=== PATIENT | male | born 1965 | race Caucasian/White ===

== ENCOUNTER 2018-07-09 14:05 | Emergency (ER) | payer OTHER ==
[2018-07-09 15:01] LABS: MEAN CORPUSCULAR HEMOGLOBIN 31.9 pg (28.0-34.0)
[2018-07-09 15:02] LABS: BASOPHILS % 0.6 (0.0-1.5); EOSINOPHILS % 2.9 % (0.0-6.8); NEUTROPHILS # 5.9 # k/uL (1.4-7.7)
[2018-07-09 15:23] LABS: eGFR (Non-African) > 60
--- NOTE | 2018-07-09 16:35 | ED Physician Documentation ---
Upper Respiratory Symptoms - HISTORIAN Historian: patient - HPI Stated Complaint: cough Chief Complaint: Cough/ Upper Respiratory Additional Information: Patient presents to ED with a 2 week history of cough. He reports he was di agnosed with pneumonia about 10 days ago while he was in . He just finished a 7 day course of Doxycycline on thursday. Today his cough has worsened and he has had some shortness of breath and hot flashes. He is concerned about a PE as he had one in 2017. Onset: days ago (14) Duration: intermittent episodes Context: denies: recent foreign travel Severity: moderate Associated Symptoms: sweating, shortness of breath Worsened by Deep Breath: No Further Comments: no - ROS CONST/EYES: denies: weakness CVS/RESP: shortness of breath LYMPH: denies: ankle swelling GI/: denies: vomiting, nausea NEURO/PSYCH: denies: dizziness MS/SKIN: denies: muscle aches - PAST HX Lung Disease: none PE Risk Factors: none Surgeries/Procedures: none Allergies/Adverse Reactions: Allergies Allergy/AdvReac Type Severity Reaction Status Date / Time No Known Drug Allergies Allergy Verified 07/09/18 14:34 Home Medications: Ambulatory Orders Medication Instructions Recorded Albuterol Sulfate [Proventil Hfa] 6.7 gm IH 07/09/18 Benzonatate [Tessalon Perles] 100 mg PO TID 07/09/18 Levofloxacin [Levaquin] 750 mg PO DAILY #10 tablet 07/09/18 predniSONE [Deltasone] 10 mg PO DIRECTED #31 tablet 07/09/18 - SOCIAL HX Smoking History: non-smoker Alcohol Use: none Drug Use: none - FAMILY HX Family History: none - VITAL SIGNS Vital Signs: Vital Signs Temp Pulse Resp BP Pulse Ox 98.8 F 67 18 119/67 91 L 07/09/18 14:16 07/09/18 14:16 07/09/18 14:16 07/09/18 14:16 07/09/18 14:16 - REVIEWED ASSESSMENTS Nursing Assessment Reviewed: Yes Vitals Reviewed: Yes ED Results Lab/Radiology - Lab Results Lab Results: Lab Results 07/09/18 07/09/18 07/09/18 14:45 14:45 14:30 WBC 9.10 K/ul K/ul (4.00-12.00) RBC 4.57 M/ul M/ul (3.90-5.20) Hgb 14.6 g/dL g/dL (12.0-18.0) Hct 43.4 % % (37.0-53.0) MCV 95.0 fl fl (80.0-100.0) MCH 31.9 pg pg (28.0-34.0) MCHC 33.6 g/dL g/dL (30.0-36.0) RDW 12.7 % % (11.3-14.3) Plt Count 246 K/mm3 K/mm3 (130-400) Neut % (Auto) 64.4 % % (39.0-79.0) Lymph % (Auto) 25.1 % % (16.0-50.0) [place] % (Auto) 7.0 % % (0.0-11.0) Eos % (Auto) 2.9 % % (0.0-6.8) Baso % (Auto) 0.6 (0.0-1.5) Neut # (Auto) 5.9 # k/uL # k/uL (1.4-7.7) Lymph # (Auto) 2.3 # k/uL # k/uL (0.6-4.0) [place] # (Auto) 0.6 # k/uL # k/uL (0.0-0.9) Eos # (Auto) 0.3 # k/uL # k/uL (0.0-0.6) Baso # (Auto) 0.1 # k/uL # k/uL (0.0-0.5) Sodium 140 mmol/L mmol/L (136-145) Potassium 4.2 mmol/L mmol/L (3.5-5.1) Chloride 101 mmol/L mmol/L (98-107) Carbon Dioxide 30 mmol/L mmol/L (22-30) BUN 15 mg/dL mg/dL (9-20) Creatinine 1.10 mg/dL mg/dL (0.66-1.25) Estimated Creat Clear 155 Est GFR ( Amer) > 60 (60 - ) Est GFR (Non-Af Amer) > 60 (60 - ) Glucose 96 mg/dL mg/dL (74-106) Calcium 8.8 mg/dL mg/dL (8.4-10.2) Total Bilirubin 0.3 mg/dL mg/dL (0.2-1.3) AST 62 U/L H U/L (15-46) ALT 32 U/L U/L (13-69) Alkaline Phosphatase 64 U/L U/L (38-126) Total Protein 8.4 g/dL H g/dL (6.3-8.2) Albumin 4.3 g/dL g/dL (3.5-5.0) Influenza Type A Ag Negative (NEGATIVE) Influenza Type B Ag Negative (NEGATIVE) - Orders Orders: ED Orders Category Date Time Status Place IV Lock 1T Care 07/09/18 14:[address] CHEST ANGIOGRAPHY [CT PE CHEST] Stat Exams 07/09/18 Taken CBC/PLATELET/DIFF Routine Lab 07/09/18 14:45 Completed CMP Routine Lab 07/09/18 14:45 Completed INFLUENZA A&B Stat Lab 07/09/18 14:30 Completed methylPREDNISolone SOD SUCC [Solu-MEDROL] Med 07/09/18 16:24 Once 125 mg IVP NOW ONE Upper Respiratory Symptoms - EXAM General Appearance: no acute distress, alert EENT: nml ENT inspection Neck: supple, lymphadenopathy Respiratory: no resp. distress, rhonchi (right basilar) Abdomen: non-tender, nml bowel sounds, no distention. No: tenderness CVS: reg rate & rhythm, heart sounds normal Skin: warm,dry. No: cyanosis Extremities: non-tender, no edema Neuro/Psych: oriented x3, mood/affect nml Discharge Clincal Impression: Pneumonia Qualifiers: Pneumonia type: due to other aerobic Gram-negative bacteria Laterality: right Lung location: lower lobe of lung Qualified Code(s): J15.6 - Pneumonia due to other Gram-negative bacteria Prescriptions: Levofloxacin [Levaquin] 750 mg PO DAILY #10 tablet predniSONE [Deltasone] 10 mg PO DIRECTED #31 tablet Referrals: Flavio Heard MD [Primary Care Provider] - 2 Days Additional Instructions: 1. Complete antibiotics 2. Drink plenty of fluids for proper hydration 3. Follow up with PCP within 1 week. You need a repeat CT chest in 3 months. IF symptoms persist a pulmonology evaluation would be necessary. 4. Return to ER for new or worsening symptoms Condition: Stable Disposition: 01 HOME, SELF-CARE Decision to Admit: NO Date of Decison to Admit: 07/09/18 Decision Time: 16:35
[2018-07-09] MEDS: methylPREDNISolone SOD SUCC 125 MG/2 ML VIAL IVP ONE (16:37)
[2018-07-09 16:55] VITALS: BP 121/68
--- NOTE | 2018-07-10 05:45 | Diagnostic Imaging Report ---
JE KATHY MARTINEZEY [facility] [address] [facility] [address] [address] Report Submission Date: Jul 09, 2018 4:10:57 PM CDT Patient Study Name: REID DANG Date: Jul 09, 2018 3:30:54 PM CDT Modality Type: CT\SR Gender: M Description: CT PE CHEST : 63 Institution: [facility] Physician: JE NOBLE CT chest PE protocol History: Cough and shortness of breath Technique: Helically acquired images were obtained through the chest following IV contrast. 3D MIPS were obtained. Findings: No filling defects are identified within the pulmonary arteries to suggest pulmonary embolism. The thoracic aorta is normal in caliber. Heart size is normal. There is no pericardial or pleural effusion. The visualized liver demonstrates hepatic steatosis. The gallbladder, adrenal glands and pancreas are unremarkable. The visualized spleen is normal in size. There is no mediastinal or hilar lymphadenopathy. No osseous abnormalities are noted. A few very faint and mildly nodular appearing parenchymal densities are present posteriorly at the right lung base, likely indicating a mild infectious or inflammatory process. The largest of these faint densities measures approximately 7 mm. Otherwise, the lungs are clear. Impression: No evidence for pulmonary embolism. Posteriorly at the deep right lung base, there are small, faint parenchymal densities. The largest of these measures 7 mm. These findings are somewhat nodular but are hazy in appearance and likely are infectious or inflammatory in nature. Consider follow-up chest CT in 3 months time after antibiotic treatment to determine if these small foci resolve. Hepatic steatosis. Electronically signed on Jul 09, 2018 4:10:57 PM CDT by: Marina HEREDIA
== END 2018-07-09 16:42 | disposition home or self-care (01) ==
LOC: ED 14:05
DX: J18.9 Pneumonia, unspecified organism (principal)
CPT/HCPCS: 36415; 71275; 80053; 85025; 87400; 96374; 99283; 99284; J2930; Q9967; S1016

== ENCOUNTER 2018-07-26 09:37 | Outpatient (CLI) | payer OTHER ==
[2018-07-26] MEDS ORDERED: ALBUTEROL SULFATE 2.5 MG/3 ML AMPUL.NEB NEB ONE (09:49)
== END 2018-07-26 09:40 ==
LOC: RT 09:37
PROVIDERS: ATTEND Family Medicine
DX: R06.02 Shortness of breath (principal)
CPT/HCPCS: 94060